=== PATIENT | male | born 1985 | race African-American/Black ===

== ENCOUNTER 2019-07-15 18:41 | Emergency (ER) | payer OTHER ==
--- NOTE | 2019-07-15 19:28 | RADIOLOGY REPORT (SQ) ---
EXAM DESCRIPTION: SHOULDER LEFT 2 OR MORE VIEWS COMPLETED DATE/TIME: 07/15/2019 7:20 pm REASON FOR STUDY: injury; pain with movement COMPARISON: None. NUMBER OF VIEWS: Three views. TECHNIQUE: Internal rotation, external rotation, and Y view images acquired of the left shoulder. LIMITATIONS: None. FINDINGS: MINERALIZATION: Normal. BONES: No acute fracture. No worrisome bone lesions. JOINTS: No dislocation. VISUALIZED LUNGS AND RIBS: No pneumothorax. No rib fracture. SOFT TISSUES: No radiopaque foreign body. OTHER: No other significant finding. IMPRESSION: NEGATIVE STUDY OF THE LEFT SHOULDER. NO RADIOGRAPHIC EVIDENCE OF ACUTE INJURY. TECHNICAL DOCUMENTATION: JOB ID: [id number] [employer]- All Rights Reserved Reading location - IP/workstation name: [email or web address]
[2019-07-15] MEDS ORDERED: PROMETHAZINE HCL 25 MG TABLET PO ONE (21:04)
[2019-07-15] MEDS ORDERED: IBUPROFEN 600 MG TABLET PO ONE (21:04)
[2019-07-15] MEDS ORDERED: OXYCODONE-ACETAMINOPHEN 5-325 MG TABLET PO ONE (21:04)
[2019-07-15] MEDS ORDERED: HYDROCODONE/ACETAMINOPHEN 5-325 MG (6 TAB/ER DISP) PO PRN (21:05)
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
[2019-07-15 21:50] VITALS: BP 170/118
== END 2019-07-15 21:48 | disposition home or self-care (01) ==
LOC: ER 18:41
DX: S49.92XA Unspecified injury of left shoulder and upper arm, initial encounter (principal); Y33.XXXA Other specified events, undetermined intent, initial encounter; Y92.238 Other place in hospital as the place of occurrence of the external cause; Y99.0 Civilian activity done for income or pay
CPT/HCPCS: 99283